=== PATIENT | male | born 1960 | race Caucasian/White ===

== ENCOUNTER 2019-02-14 14:10 | Emergency (ER) | payer SELFPAY ==
[~2019-02-14] VITALS: Ht 177.8 cm; Wt 99.8 kg
[2019-02-14 14:19] VITALS: BP 116/75
[2019-02-14] MEDS ORDERED: ACETAMINOPHEN 500 MG TAB PO ONE (15:00)
== END 2019-02-14 15:18 | disposition home or self-care (01) ==
LOC: ER 14:17
DX: S16.1XXA Strain of muscle, fascia and tendon at neck level, initial encounter (principal); S39.012A Strain of muscle, fascia and tendon of lower back, initial encounter; I10 Essential (primary) hypertension; F17.210 Nicotine dependence, cigarettes, uncomplicated; Z88.0 Allergy status to penicillin; V43.52XA Car driver injured in collision with other type car in traffic accident, initial encounter; Y93.89 Activity, other specified; Y99.8 Other external cause status; Y92.410 Unspecified street and highway as the place of occurrence of the external cause
CPT/HCPCS: 72040; 72100